=== PATIENT | male | born 1985 | race African-American/Black ===

== ENCOUNTER 2016-06-05 13:22 | Emergency (ER) | payer OTHER ==
[2016-06-05 13:32] VITALS: BP 142/95; PULSE 93; TEMP 98.4; BMI 25.8
[2016-06-05] MEDS ORDERED: traMADol HCL 50 MG TABLET PO ONE (13:53)
[2016-06-05] MEDS ORDERED: traMADol HCL 50 MG TABLET ONE (13:57)
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
== END 2016-06-05 14:07 | disposition home or self-care (01) ==
LOC: JERFT 13:22 → JER 13:22 → JERFT 14:07
PROC: 2W2EX4Z Dressing of Right Hand using Bandage (ICD-10-PCS; principal; 2016-06-05)
DX: T23.151A Burn of first degree of right palm, initial encounter (principal); X19.XXXA Contact with other heat and hot substances, initial encounter; Y93.89 Activity, other specified; Y92.63 Factory as the place of occurrence of the external cause; Y99.0 Civilian activity done for income or pay
CPT/HCPCS: 99281-25

== ENCOUNTER 2018-04-08 17:04 | Emergency (ER) | payer OTHER ==
[2018-04-08 17:46] VITALS: BP 104/71; PULSE 67; TEMP 97.9; BMI 30.1
--- NOTE | 2018-04-08 17:46 | PDOC ---
Rapid Medical Evaluation Time Seen by Provider: 04/08/18 17:44 Medical Evaluation: Allergies Allergy/AdvReac Type Severity Reaction Status Date / Time No Known Allergies Allergy Verified 06/05/16 13:28 04/08/18 17:44 The patient presents with a chief complaint of: burning sharp pain to mid sternum radiating to throat, no sob, was smoking last night when it began, no med hx, no travel I have performed a brief in-person evaluation of this patient; Pertinent physical exam findings: ambulatory, in no respiratory distress, vss, no reproducible pain I have ordered the following: ekg The patient will proceed to the ED for further evaluation. Discharge Disposition - Diagnosis Chest pain - Referrals - Patient Instructions - Post Discharge Activity
[2018-04-08] MEDS ORDERED: IBUPROFEN 600 MG TABLET (FP) PO ONE ×2 (19:57→20:31)
[2018-04-08] MEDS ORDERED: ACETAMINOPHEN 325 MG TABLET (FP) PO ONE (19:57)
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
[2018-04-08] MEDS ORDERED: ACETAMINOPHEN 325 MG TABLET (FP) ONE (20:31)
--- NOTE | 2018-04-09 18:59 | EKG ---
Test Reason : Blood Pressure : / mmHG Vent. Rate : 058 BPM Atrial Rate : 058 BPM P-R Int : 150 ms QRS Dur : 088 ms QT Int : 392 ms P-R-T Axes : 039 038 025 degrees QTc Int : 384 ms SINUS BRADYCARDIA WITH SINUS ARRHYTHMIA POSSIBLE ANTERIOR INFARCT , AGE UNDETERMINED ABNORMAL ECG NO PREVIOUS ECGS AVAILABLE Confirmed by MADHAV GRAJEDA MD ([id number]) on 04/09/2018 6:59:12 PM Referred By: Confirmed By:MADHAV GRAJEDA MD
== END 2018-04-08 22:08 | disposition home or self-care (01) ==
LOC: JER 17:04
DX: R07.9 Chest pain, unspecified (principal); F17.210 Nicotine dependence, cigarettes, uncomplicated
CPT/HCPCS: 36415; 71046-TC-FY; 84484; 93005; 93010; 99282-25